=== PATIENT | male | born 1955 | race Caucasian/White ===

== ENCOUNTER 2020-01-06 15:50 | Emergency (ER) | payer MEDICARE, OTHER ==
[~2020-01-06] VITALS: Ht 172.7 cm; Wt 89.5 kg
[~2020-01-06 15:50] MED LIST: ALPR-623 PO; DOCU100C40 PO; IBUP-1572 PO; LIRA0.6P SQ; LISI40TA4 PO; METF500T PO; PRAV10TA38 PO; TEST200V10 IM
[2020-01-06] MEDS ORDERED: normal saline 1000ML IV soln IVB ONE (16:15)
[2020-01-06] MEDS ORDERED: methylPREDNISolone sod succ 125mg/2ml vial IV ONE (16:15)
--- NOTE | 2020-01-06 16:15 | NUR ---
SCRUB WOMAN Siddharth evaluated and stated he was okay to get a further workup inside the ER. SCRUB WOMAN denied suspicious for COVID-19 and flu. charge nurse aware of pt. and okayed pt. sitting in the lobby. pt. received a mask prior to entering the er lobby.
[2020-01-06] MEDS ORDERED: ipratropium/albuterol 3ml nebule NEB ONE (16:45)
[2020-01-06 16:48] LABS: EOSINOPHILS # (AUTO) 0.2 X10'3 (0-0.9); EOSINOPHILS % (AUTO) 3.4 % (0-6); HEMOGLOBIN 14.5 g/dl (14.0-17.9); LYMPHOCYTES # (AUTO) 1.8 X10'3 (1.1-4.8); LYMPHOCYTES % (AUTO) 37.4 % (21-51); MEAN CORPUSCULAR HGB CONC 34.6 g/dL (33.0-36.5); MEAN CORPUSCULAR VOLUME 89.7 FL (78-98); MEAN PLATELET VOLUME 7.9 FL (7.4-10.4); MONOCYTES # (AUTO) 0.5 X10'3 (0-0.9); MONOCYTES % (AUTO) 9.7 % (2-12); NEUTROPHILS # (AUTO) 2.4 X10'3 (1.8-7.7); NEUTROPHILS % (AUTO) 48.5 % (42-75); PLATELET COUNT 242 X10'3 (140-440); RED BLOOD COUNT 4.68 X10'6 (4.70-6.10); WHITE BLOOD COUNT 4.9 X10'3 (4.5-11.0)
[2020-01-06 16:56] LABS: D-DIMER 0.35 MG/L FEU (0-0.50); PARTIAL THROMBOPLASTIN TIME 24 SECONDS (22-32)
[2020-01-06] MEDS ORDERED: amox tr/potassium clavulanate 875/125mg TAB PO ONE (17:05)
[2020-01-06] MEDS ORDERED: PRED20TA PO (17:08)
[2020-01-06] MEDS ORDERED: BENZ-16 PO (17:08)
[2020-01-06] MEDS ORDERED: AMOX-422 PO (17:08)
[2020-01-06] MEDS ORDERED: ALBU8.5H8 IH (17:08)
[2020-01-06 17:10] LABS: ALANINE AMINOTRANSFERASE 80 U/L (12-78); ALBUMIN 3.6 G/DL (3.4-5.0); ALKALINE PHOSPHATASE 120 IU/L (46-116); ANION GAP 8 (8-16); BILIRUBIN,TOTAL 0.2 MG/DL (0.1-1.0); BLOOD UREA NITROGEN 14 MG/DL (7-18); BUN/CREATININE RATIO 14.9 (5.4-32.0); CALCIUM 8.9 MG/DL (8.5-10.1); CHLORIDE 98 MMOL/L (99-107); CREATININE 0.94 MG/DL (0.60-1.10); SODIUM 136 MMOL/L (135-145); TOTAL CARBON DIOXIDE 30.2 MMOL/L (24-32); TOTAL PROTEIN 7.1 G/DL (6.4-8.2); eGFR 81 ML/MIN
[2020-01-06 17:12] LABS: ASPARTATE AMINO TRANSFERASE 33 U/L (10-37); GLUCOSE 278 MG/DL (70-104)
--- NOTE | 2020-01-06 17:41 | NUR ---
benton 's number: [phone]
[2020-01-06] MEDS ORDERED: meclizine 12.5mg tablet PO ONE (17:50)
--- NOTE | 2020-01-06 17:58 | NUR ---
MEDS ADMINISTERED, CT HERE TO GET PATIENT
[2020-01-06 18:16] VITALS: BP_SYST 132
--- NOTE | 2020-01-06 18:17 | NUR ---
PATIENT BACK FROM CT, RECONNECTED TO HIS FLUIDS AND VS UPDATED
[2020-01-06 18:34] VITALS: BP_DIAS 129
== END 2020-01-06 18:36 | disposition home or self-care (01) ==
LOC: ER 15:51
DX: J20.9 Acute bronchitis, unspecified (principal); E78.00 Pure hypercholesterolemia, unspecified; I10 Essential (primary) hypertension; E11.9 Type 2 diabetes mellitus without complications; Z98.890 Other specified postprocedural states; Z60.2 Problems related to living alone; Z79.2 Long term (current) use of antibiotics; Z79.899 Other long term (current) drug therapy
CPT/HCPCS: 36415; 70450; 71045; 80053; 84484; 85025; 85379; 85610; 85730; 93005; 94640; 96374; 99285; J2930; J7030; J8597; 94760

== ENCOUNTER 2020-01-14 18:14 | Emergency (ER) | payer OTHER ==
[~2020-01-14] VITALS: Ht 172.7 cm; Wt 89.5 kg
[~2020-01-14 18:14] MED LIST changes: +ALBU8.5H8 IH; +AMOX-422 PO; +BENZ-16 PO
[2020-01-14] MEDS ORDERED: ALBU8.5H8 INH (19:10)
[2020-01-14] MEDS ORDERED: BENZ-16 PO (19:47)
[2020-01-14 20:58] VITALS: BP 142/87
== END 2020-01-14 20:57 | disposition home or self-care (01) ==
LOC: ER 18:15
DX: R05 Cough (principal); E78.00 Pure hypercholesterolemia, unspecified; I10 Essential (primary) hypertension; E11.9 Type 2 diabetes mellitus without complications; Z98.890 Other specified postprocedural states; Z79.899 Other long term (current) drug therapy
CPT/HCPCS: 36415; 71045; 83880; 93005; 99285

== ENCOUNTER 2021-04-25 17:16 | Emergency (ER) | payer OTHER, MEDICARE ==
[~2021-04-25] VITALS: Ht 172.7 cm; Wt 90.9 kg
[~2021-04-25 17:16] MED LIST changes: +ALBU8.5H8 INH; -AMOX-422 PO; +LISI40TA13 PO; -LISI40TA4 PO
[2021-04-25 20:00] LABS: BASOPHILS # (AUTO) 0.1 X10'3 (0-0.2); BASOPHILS % (AUTO) 0.7 % (0-1); EOSINOPHILS # (AUTO) 0.2 X10'3 (0-0.9); EOSINOPHILS % (AUTO) 2.1 % (0-6); HEMATOCRIT 40.1 % (42.0-52.0); HEMOGLOBIN 14.1 g/dl (14.0-17.9); LYMPHOCYTES # (AUTO) 2.1 X10'3 (1.1-4.8); LYMPHOCYTES % (AUTO) 24.9 % (21-51); MEAN CORPUSCULAR HEMOGLOBIN 30.5 PG (27.0-31.0); MEAN CORPUSCULAR HGB CONC 35.1 g/dL (33.0-36.5); MEAN PLATELET VOLUME 7.1 FL (7.4-10.4); MONOCYTES # (AUTO) 0.8 X10'3 (0-0.9); MONOCYTES % (AUTO) 9.1 % (2-12); NEUTROPHILS # (AUTO) 5.4 X10'3 (1.8-7.7); NEUTROPHILS % (AUTO) 63.2 % (42-75); PLATELET COUNT 330 X10'3 (140-440); WHITE BLOOD COUNT 8.6 X10'3 (4.5-11.0)
[2021-04-25 20:16] LABS: ALANINE AMINOTRANSFERASE 28 U/L (12-78); ALBUMIN 3.9 G/DL (3.4-5.0); ALKALINE PHOSPHATASE 136 IU/L (46-116); ANION GAP 11 (8-16); ASPARTATE AMINO TRANSFERASE 13 U/L (10-37); BILIRUBIN,TOTAL 0.7 MG/DL (0.1-1.0); BLOOD UREA NITROGEN 13 MG/DL (7-18); BUN/CREATININE RATIO 16.9 (5.4-32.0); CALCIUM 9.6 MG/DL (8.5-10.1); CHLORIDE 94 MMOL/L (99-107); CREATININE 0.77 MG/DL (0.60-1.10); GLUCOSE 132 MG/DL (70-104); POTASSIUM 3.6 MMOL/L (3.5-5.1); SODIUM 135 MMOL/L (135-145); TOTAL CARBON DIOXIDE 30.2 MMOL/L (24-32); eGFR > 90 ML/MIN
[2021-04-25 21:20] VITALS: BP 180/97
[2021-04-25] MEDS ORDERED: ibuprofen tablet 400 MG TABLET PO ONE (21:45)
[2021-04-25] MEDS ORDERED: acetaminophen 325mg tablet PO ONE (21:45)
== END 2021-04-25 22:12 | disposition home or self-care (01) ==
LOC: ER 17:17
DX: R59.0 Localized enlarged lymph nodes (principal); R91.1 Solitary pulmonary nodule; K86.9 Disease of pancreas, unspecified; E78.00 Pure hypercholesterolemia, unspecified; I10 Essential (primary) hypertension; E11.9 Type 2 diabetes mellitus without complications; Z72.89 Other problems related to lifestyle; Z88.8 Allergy status to other drugs, medicaments and biological substances; Z79.899 Other long term (current) drug therapy
CPT/HCPCS: 36415; 74176; 80053; 85025; 99284

== ENCOUNTER 2021-05-05 08:52 | Emergency (ER) | payer OTHER, MEDICARE ==
[~2021-05-05] VITALS: Ht 172.7 cm; Wt 87.7 kg
[2021-05-05 08:58] VITALS: BP 135/97
[2021-05-05] MEDS ORDERED: ondansetron/PF 4mg/2ml inj IV ONE (09:20)
[2021-05-05] MEDS ORDERED: morphine 4 MG/ML inj SYRINge IV ONE (09:20)
[2021-05-05] MEDS ORDERED: dicyclomine 10mg/ml 2ml ampule IM ONE (09:20)
[2021-05-05] MEDS ORDERED: ketorolac trometh. 30mg/ml inj. IV ONE (09:20)
[2021-05-05 09:35] LABS: BASOPHILS % (AUTO) 0.6 % (0-1); EOSINOPHILS # (AUTO) 0.3 X10'3 (0-0.9); EOSINOPHILS % (AUTO) 3.3 % (0-6); HEMOGLOBIN 13.1 g/dl (14.0-17.9); LYMPHOCYTES # (AUTO) 0.5 X10'3 (1.1-4.8); LYMPHOCYTES % (AUTO) 6.5 % (21-51); MEAN CORPUSCULAR HGB CONC 35.5 g/dL (33.0-36.5); MEAN CORPUSCULAR VOLUME 84.6 FL (78-98); MEAN PLATELET VOLUME 6.8 FL (7.4-10.4); MONOCYTES # (AUTO) 0.8 X10'3 (0-0.9); MONOCYTES % (AUTO) 10.3 % (2-12); NEUTROPHILS # (AUTO) 6.4 X10'3 (1.8-7.7); NEUTROPHILS % (AUTO) 79.3 % (42-75); PLATELET COUNT 306 X10'3 (140-440); RED BLOOD COUNT 4.38 X10'6 (4.70-6.10); RED CELL DISTRIBUTION WIDTH 12.5 % (11.5-14.5); WHITE BLOOD COUNT 8.1 X10'3 (4.5-11.0)
[2021-05-05] MEDS ORDERED: iohexol 300mg/ml 100ml inj. ONE (09:47)
[2021-05-05 09:49] LABS: ALANINE AMINOTRANSFERASE 37 U/L (12-78); ALBUMIN 3.4 G/DL (3.4-5.0); ALBUMIN/GLOBULIN RATIO 0.9 (1.1-1.5); ALKALINE PHOSPHATASE 140 IU/L (46-116); ANION GAP 5 (8-16); ASPARTATE AMINO TRANSFERASE 26 U/L (10-37); BILIRUBIN,TOTAL 0.5 MG/DL (0.1-1.0); BLOOD UREA NITROGEN 8 MG/DL (7-18); BUN/CREATININE RATIO 9.5 (5.4-32.0); CALCIUM 9.4 MG/DL (8.5-10.1); CHLORIDE 92 MMOL/L (99-107); CREATININE 0.84 MG/DL (0.60-1.10); GLUCOSE 196 MG/DL (70-104); LIPASE 95 U/L (73-393); POTASSIUM 3.9 MMOL/L (3.5-5.1); SODIUM 132 MMOL/L (135-145); TOTAL CARBON DIOXIDE 34.9 MMOL/L (24-32); TOTAL PROTEIN 7.2 G/DL (6.4-8.2); eGFR > 90 ML/MIN
[2021-05-05] MEDS ORDERED: normal saline 1000ml 1,000 ML IV ONE (09:50)
[2021-05-05] MEDS ORDERED: MESSAGE TO NURSING PO ONE (11:00)
--- NOTE | 2021-05-05 12:04 | NUR ---
CONTACTED GARRETT (SURG) FOR CONSULT WITH DR. SWEET
[2021-05-05] MEDS ORDERED: HYDR-3965 PO (12:33)
[2021-05-05] MEDS ORDERED: ONDA4TAB6 PO (12:33)
== END 2021-05-05 12:51 | disposition home or self-care (01) ==
LOC: ER 08:52
DX: R10.84 Generalized abdominal pain (principal); R19.00 Intra-abdominal and pelvic swelling, mass and lump, unspecified site; I10 Essential (primary) hypertension; E11.9 Type 2 diabetes mellitus without complications; Z72.89 Other problems related to lifestyle; Z88.8 Allergy status to other drugs, medicaments and biological substances; Z79.899 Other long term (current) drug therapy; E78.00 Pure hypercholesterolemia, unspecified
CPT/HCPCS: 36415; 71260; 74177; 80053; 83605; 83690; 85025; 96361; 96372; 96374; 96375; 99285; J0500; J1885; J2270; J2405; J7030; Q9967